=== PATIENT | male | born 1995 | race Caucasian/White ===

== ENCOUNTER 2023-01-09 07:20 | Emergency (ER) | payer OTHER ==
[~2023-01-09] VITALS: Ht 175.3 cm; Wt 86.6 kg
[2023-01-09 07:21] VITALS: BP 134/78
[2023-01-09] MEDS ORDERED: PROPARACAINE 0.5% OPHTH SOL 15ML OD ONE (07:50)
[2023-01-09] MEDS ORDERED: FLUORESCEIN OPHTH 1MG STRIP OD ONE (07:50)
[2023-01-09] MEDS ORDERED: ERYTHROMYCIN OPHTH OINT OD ONE (08:05)
[2023-01-09] MEDS ORDERED: ERYT5OIN25 OD (08:15)
== END 2023-01-09 08:31 | disposition home or self-care (01) ==
LOC: M ED 07:20
DX: H10.31 Unspecified acute conjunctivitis, right eye (principal); Z79.899 Other long term (current) drug therapy